=== PATIENT | female | born 1990 | race Two or more races ===

== ENCOUNTER 2021-10-12 12:51 | Emergency (ER) | payer OTHER ==
[~2021-10-12] VITALS: Ht 157.5 cm; Wt 60.2 kg
[2021-10-12] MEDS ORDERED: ONDANSETRON PF 4 MG/2 ML VIAL. IVP ONE (13:30)
[2021-10-12] MEDS ORDERED: IV NORMAL SALINE 1000ML BAG 1,000 ML IV ONE (13:30)
--- NOTE | 2021-10-12 13:38 | PHYS DOC ---
Past Medical History Past Surgical History: Appendectomy Smoking Status: Never Smoker Alcohol Use: None Drug Use: None General Adult EDM: Chief Complaint: NAUSEA/VOMITING/DIARRHEA HPI: HPI: Patient is a 30-year-old female that presents today with nausea and vomiting. Patient is Tristanian-speaking only and all information obtained during the [facility] interpretive services was used. Patient states her nausea and vomiting started approximately 1 week ago but has worsened in the last 48 hours, she states that she is , she states she is unable to say how far along she is due to that she was being on oral control pills, and she stopped taking them when she found that she was . Patient states she has a 5 para 4, and has not had any care as of yet. Patient states she has noted a decrease in urinary output and that her urine is very yellow. Patient is complaining of lower abdominal pain with palpation, she denies painful urination , frequency in urination, vaginal bleeding, vaginal discharge, fever, chills, or diarrhea. Review of Systems: Review of Systems: Constitutional: Denies fever or chills. [] Eyes: Denies change in visual acuity. [] HENT: Denies nasal congestion or sore throat. [] Respiratory: Denies cough or shortness of breath. [] Cardiovascular: Denies chest pain or edema. [] GI: abdominal pain, nausea, vomiting, denies bloody stools or diarrhea. [] : Denies dysuria, frequency in urination Musculoskeletal: Denies back pain or joint pain. [] Integument: Denies rash. [] Neurologic: Denies headache, focal weakness or sensory changes. [] Endocrine: Denies polyuria or polydipsia. [] Lymphatic: Denies swollen glands. [] Psychiatric: Denies depression or anxiety. [] Heart Score: C/O Chest Pain: No Risk Factors: Risk Factors: DM, Current or recent (<one month) smoker, HTN, HLP, family history of CAD, obesity. Risk Scores: Score 0 - 3: 2.5% MACE over next 6 weeks - Discharge Home Score 4 - 6: 20.3% MACE over next 6 weeks - Admit for Clinical Observation Score 7 - 10: 72.7% MACE over next 6 weeks - Early Invasive Strategies Allergies: Allergies: Allergies Coded Allergies Type Severity Reaction Last Updated Verified No Known Drug Allergies 10/12/21 No Physical Exam: PE: Constitutional: Well developed, well nourished, no acute distress, non-toxic appearance. [] HENT: Normocephalic, atraumatic, bilateral external ears normal, oropharynx moist, no oral exudates, nose normal. [] Eyes: PERRLA, EOMI, conjunctiva normal, no discharge. [] Neck: Normal range of motion, no tenderness, supple, no stridor. [] Cardiovascular:Heart rate regular rhythm, no murmur [] Lungs & Thorax: Bilateral breath sounds clear to auscultation [] Abdomen: Bowel sounds normal, soft, tenderness in lower abdomen with palpation, no masses, no pulsatile masses. [] Skin: Warm, dry, no erythema, no rash. [] Back: No tenderness, no CVA tenderness. [] Extremities: No tenderness, no cyanosis, no clubbing, ROM intact, no edema. [] Neurologic: Alert and oriented X 3, normal motor function, normal sensory function, no focal deficits noted. [] Psychologic: Affect normal, judgement normal, mood normal. [] Current Patient Data: Labs: Laboratory Tests Test 10/12/21 13:25 10/12/21 13:34 10/12/21 14:01 Urine Collection Type Unknown Urine Color (Auto) Yellow Urine Turbidity Hazy Urine pH (Auto) 7.0 Urine Specific [place] 1.031 Urine Protein (Auto) 30 mg/dL Urine Glucose (Auto)(UA) Negative mg/dL Urine Ketones (Auto) 40 mg/dL Urine Blood (Auto) Trace Urine Nitrite Negative Urine Bilirubin (Auto) Negative Urine Urobilinogen (Auto) 2 mg/dL Urine Leukocyte Esterase (Auto) Negative Urine RBC 3-5 /HPF Urine WBC 1-4 /HPF Urine Squamous Epithelial Cells Few /LPF Urine Bacteria Few /HPF Urine Mucus Mod /LPF Bedside Urine HCG, Qualitative Hcg positive White Blood Count 8.5 x10^3/uL Red Blood Count 4.52 x10^6/uL Hemoglobin 13.3 g/dL Hematocrit 38.8 % Mean Corpuscular Volume 86 fL Mean Corpuscular Hemoglobin 29 pg Mean Corpuscular Hemoglobin Concent 34 g/dL Red Cell Distribution Width 14.0 % Platelet Count 338 x10^3/uL Neutrophils (%) (Auto) 62 % Lymphocytes (%) (Auto) 29 % Monocytes (%) (Auto) 6 % Eosinophils (%) (Auto) 2 % Basophils (%) (Auto) 1 % Neutrophils # (Auto) 5.3 x10^3/uL Lymphocytes # (Auto) 2.5 x10^3/uL Monocytes # (Auto) 0.5 x10^3/uL Eosinophils # (Auto) 0.2 x10^3/uL Basophils # (Auto) 0.0 x10^3/uL Maternal Serum HCG Beta Subunit [id number] mIU/mL Sodium Level 135 mmol/L Potassium Level 3.8 mmol/L Chloride Level 100 mmol/L Carbon Dioxide Level 26 mmol/L Anion Gap 9 Blood Urea Nitrogen 7 mg/dL Creatinine 0.6 mg/dL Estimated GFR (Cockcroft-Gault) 115.9 BUN/Creatinine Ratio 12 Glucose Level 88 mg/dL Calcium Level 9.1 mg/dL Total Bilirubin 0.4 mg/dL Aspartate Amino Transf (AST/SGOT) 18 U/L Alanine Aminotransferase (ALT/SGPT) 23 U/L Alkaline Phosphatase 58 U/L Total Protein 8.0 g/dL Albumin 3.6 g/dL Albumin/Globulin Ratio 0.8 Lipase 87 U/L Current Medications Medications (Trade) Dose Ordered Sig/Amairani Route PRN Reason Start Time Stop Time Status Last Admin Dose Admin Sodium Chloride 1,000 ml @ 999 mls/hr 1X ONCE IV 10/12/21 13:30 10/12/21 14:30 DC 10/12/21 14:36 Ondansetron HCl (Zofran) 4 mg 1X ONCE IVP 10/12/21 13:30 10/12/21 13:35 DC 10/12/21 14:35 Vital Signs: Vital Signs Date Time Temp Pulse Resp B/P (MAP) Pulse Ox O2 Delivery O2 Flow Rate FiO2 10/12/21 12:55 99.0 93 18 130/72 (91) 100 Room Air 99.0 EKG: EKG: [] Radiology/Procedures: Radiology/Procedures: REASON: , n/v, abdominal pain PROCEDURE: OB < 14 WKS US OB <14 WKS +TV History: , n/v, abdominal pain Comparison: None. Technique: Sonographic examination of the pelvis was performed with transabdominal technique. Findings: The uterus is early gravid, measuring 10.1 x 8.9 x 8.7 cm. The uterus contains a single gestational sac with normal shape. A pole is identified with crown-rump length measuring 4.39 cm, corresponding to a gestational age of 11 weeks 2 days. There is no evidence of perigestational hemorrhage. The heart rate measures 149. The right ovary is normal in size and echogenicity, measuring 2.8 x 1.7 x 2.0 cm. The left ovary is obscured by gas and not visualized. No left adnexal masses identified. There is no evidence of adnexal mass or free fluid. Impression: 1. No evidence of acute pelvic pathology. 2. Single live intrauterine gestation with crown-rump length corresponding to a gestational age of 11 weeks 2 days, ultrasound EDC 05/01/2022. Electronically signed by: Aleksey Horner MD (10/12/2021 2:27 PM) [id number] [] Course & Med Decision Making: Course & Med Decision Making Pertinent Labs and Imaging studies reviewed. (See chart for details) [id number] using interpretive services I reviewed radiological and laboratory results with patient. Her nausea is related to her , I did inform her that she was approximately 11 weeks along, and that she will need to follow-up as soon as possible with Dr. Francisco or her [facility] for further evaluation and management of her . Patient is not currently reporting any vaginal bleeding, and her nausea has improved. Patient is instructed to follow a clear liquid diet for the next 12 to 24 hours and then advance as tolerated, and I will call in some Zofran for her for nausea. Patient and family member at the bedside verbalized understanding and is agreeable with the plan of care. Kelsea Disclaimer: Kelsea Disclaimer: This electronic medical record was generated, in whole or in part, using a voice recognition dictation system. Departure Departure Impression: Primary Impression: Nausea and vomiting during prior to 22 weeks gestation Additional Impression: Qualified Codes: Z3A.11 - 11 weeks gestation of Disposition: 01 HOME / SELF CARE / HOMELESS Condition: STABLE Referrals: NO PCP (PCP) REEMA FRANCISCO MD Patient Instructions: ABCs of , Nausea and Vomiting, - First Trimester Additional Instructions: Follow-up with your primary care provider, your [facility] or with Dr. Francisco as soon as possible for further management and evaluation of your Zofran take 1 tablet every 6-8 hours as needed for nausea, use with caution may cause constipation Clear liquid diet for the next 12 to 24 hours and then advance as tolerated Return to the emergency department if you are unable to keep any by mouth fluids down even with use of Zofran, you have vaginal bleeding or with increased abdominal pain. Scripts Ondansetron (ONDANSETRON ODT) 4 Mg Tab.rapdis 1 TAB PO PRN Q6-8HRS, #16 TAB Prov: OTTO NASCIMENTO ASSISTANT DEPARTMENT MANAGER 10/12/21 OTTO NASCIMENTO ASSISTANT DEPARTMENT MANAGER Oct 12, 2021 13:38
[2021-10-12 13:59] LABS: BACTERIA,URINE FEW /HPF (0-FEW)
[2021-10-12 14:26] LABS: BASO % 1 % (0-3); EOS # 0.2 x10^3/uL (0.0-0.7); EOS % 2 % (0-3); HEMATOCRIT 38.8 % (36.0-47.0); HEMOGLOBIN 13.3 g/dL (12.0-15.5); LYMPH # 2.5 x10^3/uL (1.0-4.8); LYMPH % 29 % (24-48); MEAN CORPUSCULAR HEMOGLOBIN 29 pg (25-35); MEAN CORPUSCULAR HGB CONC 34 g/dL (31-37); MEAN CORPUSCULAR VOLUME 86 fL (79-100); MONO # 0.5 x10^3/uL (0.0-1.1); MONO % 6 % (0-9); NEUT # 5.3 x10^3/uL (1.8-7.7); NEUT % 62 % (31-73); PLATELET COUNT 338 x10^3/uL (140-400); RED BLOOD COUNT 4.52 x10^6/uL (3.50-5.40); WHITE BLOOD COUNT 8.5 x10^3/uL (4.0-11.0)
--- NOTE | 2021-10-12 14:29 | RAD ---
US OB <14 WKS +TV History: , n/v, abdominal pain Comparison: None. Technique: Sonographic examination of the pelvis was performed with transabdominal technique. Findings: The uterus is early gravid, measuring 10.1 x 8.9 x 8.7 cm. The uterus contains a single gestational sac with normal shape. A pole is identified with crown -rump length measuring 4.39 cm, corresponding to a gestational age of 11 weeks 2 days. There is no evidence of perigestational hemorrhage. The heart rate measures 149. The right ovary is normal in size and echogenicity, measuring 2.8 x 1.7 x 2.0 cm. The left ovary is obscured by gas and not visualized. No left adnexal masses identified. There is no evidence of adnexal mass or free fluid. Impression: 1. No evidence of acute pelvic pathology. 2. Single live intrauterine gestation with crown-rump length corresponding to a gestational age of 1 1 weeks 2 days, ultrasound EDC 05/01/2022. Electronically signed by: Aleksey Horner MD (10/12/2021 2:27 PM) [id number]
[2021-10-12 14:46] LABS: CALCIUM 9.1 mg/dL (8.5-10.1); CREATININE 0.6 mg/dL (0.6-1.0); GFR 115.9; POTASSIUM 3.8 mmol/L (3.5-5.1)
[2021-10-12 14:52] LABS: ALBUMIN 3.6 g/dL (3.4-5.0); ALBUMIN/GLOBULIN RATIO 0.8 (1.0-1.7); TOTAL BILIRUBIN 0.4 mg/dL (0.2-1.0)
[2021-10-12 16:01] VITALS: BP 102/62
[2021-10-12] MEDS ORDERED: ONDA4TAB12 PO (16:02)
== END 2021-10-12 16:13 | disposition home or self-care (01) ==
LOC: ER 12:51
DX: O21.9 Vomiting of pregnancy, unspecified (principal); R10.30 Lower abdominal pain, unspecified; Z90.89 Acquired absence of other organs; Z3A.11 11 weeks gestation of pregnancy
CPT/HCPCS: 36415; 76801; 80053; 81001; 81025; 83690; 84702; 85025; 86850; 86900; 86901; 96361; 96374; 99284; J2405; J7030